=== PATIENT | female | born 1950 | race Caucasian/White ===

== ENCOUNTER 2021-08-06 15:51 | Emergency (ER) | payer MEDICARE ==
[~2021-08-06] VITALS: Ht 167.6 cm; Wt 49.9 kg
[2021-08-06] MEDS ORDERED: Monodox100 MG PO (16:46)
== END 2021-08-06 16:57 | disposition home or self-care (01) ==
LOC: ER 15:51
DX: L03.116 Cellulitis of left lower limb (principal)
CPT/HCPCS: 73630; 99282-25